=== PATIENT | male | born 1940 | race African-American/Black ===

== ENCOUNTER 2017-10-25 18:33 | Inpatient (IN) | payer OTHER ==
[~2017-10-25] VITALS: Ht 175.3 cm; Wt 80.7 kg
--- NOTE | ~2017-10-25 | EKG ---
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[facility] : 1940 Requested By: Petra Esparza Order Number: [id number] MD: Raul Herrera Measurements Intervals [place] Rate: 126 P: 74 OK: 153 QRS: 16 QRSD: 80 T: 132 QT: 301 QTc: 436 Interpretive Statements Sinus tachycardia Nonspecific ST and T wave abnormality No previous ECG available for comparison Electronically Signed On 10-26-2017 13:45:52 CDT by Raul Herrera [email or web address] <ELECTRONICALLY SIGNED> By: Raul Herrera MD, [facility] 10/26/17 1345 1845 1845 Raul Herrera MD, FACC /EPI
--- NOTE | ~2017-10-25 | HC ---
[facility] [place] [address] CONSULTATION Name: REMIGIO LEWIS Room #: 350-P ADM IN M.R.#: [id number] Admission: 10/25/17 Attend Phys: Sonny Green MD Discharge: Date of : 44 Report #: [id number] THIS REPORT FOR: //name// CC: ESTEFANY POOLE [facility] physician/PCP Sonny June DATE OF SERVICE: 10/25/2017 HISTORY OF PRESENT ILLNESS: This is a 77-year-old male patient who was seen by me because of altered mental status. This patient has baseline dementia. He usually goes to a neurologist at [facility]. He was having urinary frequency for the last 2-3 days. He has to go up to the bathroom multiple times. Today, he had a sudden onset of the flank pain and he had shakiness. Then, he became confused and became unresponsive. Initial workup was done by Dr. Esparza. She ordered a CT scan of the head and CT angio with perfusion. CT of the head report indicates there was diffuse atrophy. CT angiogram and perfusion report is not there, but Dr. Esparza has been called with the results of that and she has been told that it is normal. This patient in the meantime has returned back to his normal self. He usually does not remember months and he does not remember that. He usually remembers the name of his and he can recognize his and he can do that. He can recognize his sister and he can name his sister. This is a pretty significant improvement since he came in. He never had any focal neurological deficit any time. REVIEW OF SYSTEMS: Indicate what appeared to be significant amount of dementia and he is on donepezil for that. He does have a history of hypertension. He takes medication for that. He has no hypertension here. In fact, his blood pressure is 143/80, his pulse rate is 108. His 14-point review of system was carried out and I talked to family multiple times and this was his relevant the best I can do with the time constraint. PAST MEDICAL HISTORY: Positive for what appeared to be significant dementia. FAMILY HISTORY: Negative for early age stroke. SOCIAL HISTORY: He has prior history of smoking. PHYSICAL EXAMINATION: Indicate he is alert. He is responsive. He has a good formed speech. He can recognize his , he can recognize his sister. He knows their name. Whatever I can tell, this is pretty much his baseline. Cranial nerve examination 2-12 was carried out. I do not know how good he does with the visual field. Some time, he does okay, but when I ask him to close one eye, he sometimes does not do okay, but it is not particularly in the right or left visual field. He does not okay on any of them. He does have a history of [facility] [address] [place] [address] CONSULTATION Name: REMIGIO LEWIS Room #: 350-P [facility] IN M.R.#: [id number] Admission: 10/25/17 Attend Phys: Sonny Green MD Discharge: Date of : 44 Report #: [id number] cataract . Last eye examination was about 2 years ago. He has no facial palsy and his strength, sensation, and reflexes are symmetrical the best it could be checked. He has no cerebellar sign. I could not look at the fundus because he could not cooperate. There is no neglect. This examination was carried out multiple times and there is a marked improvement on it. LABORATORY DATA: Came back, his white count is 13.1 and his urinalysis indicate that he has wbc. IMPRESSION: Difficult to form in this patient. He has a urinary tract infection and he presented with the flank pain and it can be encephalopathy. He can have seizures. The point in favor of urinary tract infection is that he has increased wbc in the urine and increased white count at 13.1. Similar finding can occur with seizure if he had one. We initially evaluated for a stroke. We mixed up the TPA and we were going to give him TPA. We have talked to the family and talked to the family multiple times. The situation in this patient is that his symptoms are that he has flank pain followed by what looked like seizure activity and then altered mental status without any focal deficit. Those are atypical features for stroke, but stroke cannot be fully excluded. We have a reason why he can have these symptoms and that is his urinary tract infection complicating dementia and causing encephalopathy and seizure and that will give rise to the blood picture like he has. He has no reactive hypertension. He never had any focal neurological deficit. I frankly talked to the family that we mixed the TPA and we can give the TPA and initially we were going to go ahead and give him TPA, but he has improved pretty significantly. His mentation is back to his baseline. Stroke cannot be fully excluded, but if it is a stroke, it is a small stroke with deficit which has improved pretty significantly. We never used to give TPA to this patient, but these days we do give and we can give if the family wants to proceed with it. After discussing all their options with them, the family decided that they will not like to proceed with TPA. That is reasonable because this patient's symptoms are as described above, we cannot exclude encephalopathy and seizure, by oral report CT angio and perfusion is normal, he has no reactive hypertension and he appears to be his baseline, but I cannot tell about his eye examination. His urinary tract infection should be further worked up and his urinary tract infection should be treated extensively. He should have an MRI and if MRI does show a stroke, then he should be put on secondary stroke prophylaxis. He should have an EEG to make sure he did not have a seizure. There is some question whether he will be staying here or going to [facility] and we will let them decide and do the further management. I did ask them to check for his CT angiogram full report when it comes and call me if there is any difference or problem. Because CT perfusion report is there, but CT angiogram report is not there yet, but Dr. Esparza has been told that it has been normal. [address] [address] CONSULTATION Name: REMIGIO LEWIS Room #: 350[facility] IN .R.#: [id number] Admission: 10/25/17 Attend Phys: Sonny Green MD Discharge: Date of : 44 Report #: [id number] This addendum is being added at the time of signing this note. CT angiogram report is still not there and I called the radiology and they indicated that it is negative and they will put an addendum. Patient decided to stay here. Will check him in AM. Will get EEG and MRI and follow up. More than 50 minutes of time was spent taking care of this patient and majority of that time was spent counseling the family about their options and co ordianting his care <ELECTRONICALLY SIGNED> By: Willis June MD 10/25/17 2325 13 2142 Willis June MD /nt
--- NOTE | ~2017-10-25 | EKG ---
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 : 1940 Requested By: Marguerite Randle Order Number: [id number] MD: Raul Herrera Measurements Intervals [place] Rate: 133 P: 43 OR: 153 QRS: 5 QRSD: 79 T: 152 QT: 256 QTc: 381 Interpretive Statements Sinus tachycardia Nonspecific ST and T wave abnormality Compared to ECG 10/25/2017 18:45:44 No significant change was found Electronically Signed On 10-28-2017 19:23:55 CDT by Raul Herrera [email or web address] <ELECTRONICALLY SIGNED> By: Raul Herrera MD, [facility] 10/28/17 1923 0849 0849 Raul Herrera MD, [facility] /EPI
--- NOTE | ~2017-10-25 | HC ---
[facility] [place] [address] CONSULTATION Name: REMIGIO LEWIS Room #: 362-P [facility] IN M.R.#: [id number] Admission: 10/25/17 Attend Phys: Marguerite Randle Discharge: 10/29/17 Date of : 44 Report #: [id number] THIS REPORT FOR: //name// CC: ESTEFANY POOLE [facility] physician/PCP Marguerite June DATE OF SERVICE: 10/27/2017 HISTORY OF PRESENT ILLNESS: The patient is a 77-year-old -[place] male, who was admitted with an episode of unresponsiveness. He has premorbid dementia, living with his and apparently follows with a neurologist out of [facility]. He was at his baseline when he had the sudden onset of unresponsiveness with aphasia. He was admitted to [facility]. CT of the head was negative. MRI showed some chronic encephalomalacia changes with nothing acute. He was diagnosed with a urinary tract infection. EEG appears to be pending. Working impression of Neurology is that he has an encephalopathy due to the urinary tract infection superimposed on his premorbid dementia. He has had a significant decline from his premorbid function and we are seeing him in rehabilitation medicine consultation. PAST MEDICAL HISTORY: Hyperlipidemia, hypertension, history of premorbid dementia, nevertheless functional in the community with his . Prostate cancer removed in 2006. MEDICATIONS: Please see the full medication listing. ALLERGIES: No known drug allergies. HABITS: No history of alcohol abuse. Former tobacco smoker, quit greater than a year ago. SOCIAL HISTORY: Lives with his in an apartment two flights of steps to get into the apartment. He did not utilize gait aids premorbidly apparently. Her chart notes, he was independent with and household ambulation without a device and walked his 2 dogs multiple times per day. REVIEW OF SYSTEMS: Did not offer any current complaints of chest pain, shortness of breath or abdominal discomfort. No focal extremity pain complaints. PHYSICAL EXAMINATION: GENERAL: A 77-year-old -[place] male in no obvious distress. VITAL SIGNS: Temperature is 99.2, pulse 67, respirations 18, blood pressure is 127/76. [facility] [address] [place] [address] CONSULTATION Name: REMIGIO LEWIS Room #: 362-P [facility] IN [facility].#: [id number] Admission: 10/25/17 Attend Phys: Marguerite Randle Discharge: 10/29/17 Date of : 42 Report #: [id number] NEUROLOGIC: He was unable to tell me which hospital he was in and he could not tell me the year. He can follow basic 1 step commands and was cooperative. EOMs appeared to be full. Facies were symmetric. There is a definite latency to his responses. Functional range of motion of both upper extremities. Strength is grade 4/5. DTRs are trace to 1. Lower extremities, no focal calf swelling, functional range of motion with strength grade 4/5. He is min assist with sit to stand. Gait 250 feet min assist without a device with some balance deficits and unsteadiness and some listing to the right. ASSESSMENT: A 77-year-old -[place] male with the following problem list: 1. Metabolic encephalopathy. 2. Urinary tract infection. 3. Gait and balance issues with decreased functional mobility and ADLs. 4. Initial unresponsiveness episode. 5. Premorbid dementia, nevertheless living in the community with his . PLAN: Therapy evaluations are continuing. He certainly may be a candidate for a short acute in-hospital inpatient rehabilitation stay. We will be glad to follow along with you regarding his rehab therapy needs. ADDENDUM EEG is still pending and OT is evaluating. <ELECTRONICALLY SIGNED> By: Ramon Mcknight MD 11/04/17 1030 1050 1227 Ramon Mcknight MD /[facility]
--- NOTE | ~2017-10-25 | EEG ---
[facility] [place] [address] ELECTROENCEPHALOGRAM Name: REMIGIO LEWIS Room #: 362-P [facility] IN M.R.#: [id number] Admission: 10/25/17 Attend Phys: Marguerite Serrano Discharge: 10/29/17 Date of : 44 Report #: [id number] THIS REPORT FOR: //name// CC: ESTEFANY POOLE [facility] physician/PCP Marguerite June DATE OF SERVICE: 10/26/2017 This patient's EEG is being done for the possibility of seizure. EEG was done by placing the electrodes by standard 10-20 system of electrode placement. Both referential and sequential montages were used for recording. Background activity in this patient's EEG is about 10 Hz and 30 microvolt. The patient goes to sleep, that is associated with bilaterally symmetrical sleep spindle and vertex sharp waves. Throughout the record no active epileptiform activity was noticed. IMPRESSION: This patient's electroencephalogram is intermixed with some theta range slowing on both sides. That is a nonspecific abnormality, which can occur with dementia, encephalopathy, effect of psychotropic medication. No active seizure activity was noticed during this record. Thank you very much for this referral. <ELECTRONICALLY SIGNED> By: Willis June MD 11/06/17 1906 1604 1609 Willis June MD /nt
--- NOTE | ~2017-10-25 | HC ---
[facility] [place] [address] CONSULTATION Name: REMIGIO LEWIS Room #: 362-P ADM IN M.R.#: [id number] Admission: 10/25/17 Attend Phys: Marguerite Randle Discharge: Date of : 44 Report #: [id number] THIS REPORT FOR: //name// CC: ESTEFANY POOLE [facility] physician/PCP Marguerite June REASON FOR CONSULTATION: I was asked to evaluate concerning fever, urinary tract infection and altered mental status. HISTORY OF PRESENT ILLNESS: The patient was a 77-year-old, admitted on 10/25/2017, brought in by EMS when his noticed that he developed acute onset of rigors with complaints of flank pain and was unresponsive to verbal commands. He does have underlying dementia. He has had prostate cancer and previous urinary tract infection. His states nothing like this, however. The patient was unable to give me any details. There was concern about underlying seizure disorder. Neurology has seen him and has done multiple imaging studies including CT and MRI scan, which showed evidence of small vessel disease, nothing acute. He has had low-grade fever since he has been hospitalized. He has been fluctuating in his mental status. His appetite has been reasonable. No witnessed seizure activity identified. He has had a rash that he has been treating with topical steroids for the last several weeks. No headache. Minimal cough. No sputum production. No nausea, vomiting or diarrhea. Currently, no dysuria. Denies any arthritis symptoms. He has had no travel. No reported HIV risk factors. 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 ALLERGIES: None. MEDICATIONS: Prior to his admission included hydrochlorothiazide, Aricept, aspirin, Lipitor, since he has been on ceftriaxone and anti-seizure medications. PAST MEDICAL HISTORY: Hypertension, hyperlipidemia, underlying dementia, prostate cancer in 2007 status post prostatectomy. FAMILY HISTORY: Noncontributory. SOCIAL HISTORY: Past smoker, no significant alcohol intake. Lives with his of 25 years. REVIEW OF SYSTEMS: As noted above with no additions. PHYSICAL EXAMINATION: VITAL SIGNS: Afebrile, hemodynamically stable. GENERAL: He was alert and cooperative. He was slow in his speech. He was hard of hearing. Was disoriented. He did know his name and he was able to recognize his family members. [address] [address] CONSULTATION Name: REMIGIO LEWIS Room #: 362-P [facility] IN M.R.#: [id number] Admission: 10/25/17 Attend Phys: Marguerite Randle Discharge: Date of : 44 Report #: [id number] HEENT: Unremarkable. NECK: Supple. He had dermatitis to his anterior chest and upper back. No adenopathy. LUNGS: Clear. HEART: Regular, without murmur. ABDOMEN: Soft, nontender, no hepatosplenomegaly or mass. GENITOURINARY: External genitalia unremarkable. RECTAL: Not performed. EXTREMITIES: Unremarkable. NEUROLOGIC: Nonfocal. I did watch him walk, he was a bit unsteady, but was able to ambulate without assistance. LABORATORY STUDIES: Sodium 138, potassium 3.4, bicarbonate 26, creatinine 1.2, AST 63, ALT 23, alkaline phosphatase 125, bilirubin 1.1. Hemoglobin 13.2, platelet count 187,000, WBC 10 with 73% segs, 15% lymphs. Sedimentation rate 50. TSH 0.5. MRI scan of the brain showed small vessel ischemic disease. Urinalysis, 6-15 wbc's, 3-10 rbc's, greater than 30 bacteria. Urine culture, E. coli resistant to Unasyn, Bactrim, tetracycline, otherwise susceptible. IMPRESSION: A 77-year-old with change in mental status, complicating underlying dementia. Unclear if he was having rigors at home or actually had a seizure. There is concern by Neurology that he is having subclinical seizure activity at this time. He did have some active urine sediment. However, no definite findings of a pyelonephritis on examination. RECOMMENDATIONS: We will repeat his urinalysis and urine culture. I would like to check his urinary tract imaging studies, also chest x-ray. We will continue ceftriaxone at this time. We will also check immunoglobulins and HIV study. We will see how he does over the next 24 hours. If no improvement in his mental status and he still has low grade fever, then would consider lumbar puncture. <ELECTRONICALLY SIGNED> By: Aditya Marie MD 10/29/17 1704 00 24 Aditya Marie MD /nt
--- NOTE | ~2017-10-25 | EEG ---
[facility] [address] [place] [address] ELECTROENCEPHALOGRAM Name: REMIGIO LEWIS Room #: 362-P [facility] IN M.R.#: [id number] Admission: 10/25/17 Attend Phys: Marguerite Serrano Discharge: 10/29/17 Date of : 42 Report #: [id number] THIS REPORT FOR: //name// CC: ESTEFANY POOLE [facility] physician/PCP Marguerite June DATE OF SERVICE: 10/28/2017 This patient had another episode where he is not that awake as he was before. EEG was done by placing the electrode by standard 10/20 system of electrode placement. EEG was done to see if we can catch any seizure activity in this patient. Background activity in this patient's EEG is about 10 Hz and 40 microvolt. It is a reasonably well formed background activity. It is intermixed with theta range slowing on both sides. The patient appeared to be asleep during part of this EEG and that is associated with bilateral slowing and vertex sharp waves. Photic stimulation is unremarkable. Throughout the record, no active epileptiform activity was noticed. IMPRESSION: In spite of the patient's episode, this patient does not show any active epileptiform activity. Thank you very much for this referral. <ELECTRONICALLY SIGNED> By: Willis June MD 11/06/17 1906 0855 3 MD clive Clay
[2017-10-25 18:52] VITALS: BP 143/80
[2017-10-25 18:59] LABS: ABSOLUTE NEUTROPHILS 11.4 thou/uL (1.4-8.2); BASOPHILS 0.5 % (0.0-2.0); EOSINOPHILS 0.4 % (0.0-3.0); HEMOGLOBIN 14.1 gm/dL (14.0-18.0); LYMPHOCYTES 7.3 % (24.0-44.0); MCH 28.3 pg (26.0-34.0); MCHC 33.4 g/dL (28.0-37.0); MCV 84.8 fL (80.0-100.0); MONOCYTES 4.5 % (1.0-8.0); PLATELET COUNT 197 thou/uL (150-400); POLYS 87.3 % (36.0-66.0); RBC 4.96 mil/uL (4.50-6.00); RDW 15.3 % (10.5-14.5); WBC 13.1 thou/uL (4.0-11.0)
[2017-10-25 19:09] LABS: CALCIUM 9.6 mg/dL (8.5-10.1); CREATININE 1.3 mg/dL (0.7-1.3); POTASSIUM 3.1 mmol/L (3.5-5.1)
[2017-10-25 19:13] LABS: INR 1.1; PROTIME 10.9 Seconds (9.3-11.4)
[2017-10-25 19:14] LABS: APTT 21.7 Seconds (24.5-32.8)
[2017-10-25] MEDS ORDERED: HYDROCHLOROTHIA25 M1 PO (19:28)
[2017-10-25] MEDS ORDERED: ARICEPT 5 MG TAB5 MG PO (19:29)
[2017-10-25] MEDS ORDERED: ATORVASTATIN CA40 MG PO (19:30)
[2017-10-25] MEDS ORDERED: ASPIRIN325 PO (19:30)
[2017-10-25 19:47] LABS: URINE BILIRUBIN NEGATIVE (Negative); URINE BLOOD 1+ (Negative); URINE COLOR YELLOW; URINE GLUCOSE-RANDOM* NEGATIVE (Negative); URINE KETONES NEGATIVE (Negative); URINE LEUKOCYTES-REFLEX NEGATIVE (Negative); URINE NITRITE-REFLEX POSITIVE (Negative); URINE PROTEIN (DIPSTICK) TRACE (Negative); URINE SPECIFIC GRAVITY <= 1.005 (1.005-1.035)
[2017-10-25 19:48] LABS: URINE CLARITY SL HAZY
[2017-10-25 19:52] LABS: BACTERIA-REFLEX >30 Many /HPF (None Seen); CASTS None Seen /LPF (None Seen); CRYSTALS None Seen /LPF (None Seen); SQUAMOUS None Seen /LPF (0-3); URINE RBC 3-10 Few /HPF (0-2); URINE WBC-REFLEX 6-15 Few /HPF (0-5)
[2017-10-25 21:25] VITALS: BP 133/78
[2017-10-25 21:44] VITALS: BP 123/68
[2017-10-25 22:00] VITALS: BP 150/71
[2017-10-25 22:17] LABS: POC CA IONIZED 4.7 mg/dL (4.5-5.3); POC CREATININE 1.1 mg/dL (0.6-1.3); POC HEMOGLOBIN 13.6 g/dL (14.0-18.0)
[2017-10-26 00:13] VITALS: BP 111/57
[2017-10-26 03:26] VITALS: BP 113/63
[2017-10-26 07:02] LABS: HEMATOCRIT 37.8 % (42.0-52.0); HEMOGLOBIN 12.5 gm/dL (14.0-18.0); MCH 28.2 pg (26.0-34.0); MCV 85.4 fL (80.0-100.0); RBC 4.43 mil/uL (4.50-6.00); WBC 15.3 thou/uL (4.0-11.0)
[2017-10-26 07:10] LABS: CALCIUM 8.9 mg/dL (8.5-10.1); CREATININE 1.2 mg/dL (0.7-1.3); POTASSIUM 3.5 mmol/L (3.5-5.1)
[2017-10-26 07:47] LABS: TSH 0.562 uIU/mL (0.358-3.740)
[2017-10-26 10:12] VITALS: BP 116/67
[2017-10-26 12:20] VITALS: BP 114/63
[2017-10-26] MEDS ORDERED: AMLODIPINE BESY10 MG PO (13:26)
[2017-10-26] MEDS ORDERED: HYDROCHLOROTHIA25 M2 PO (13:27)
[2017-10-26] MEDS ORDERED: ARICEPT 5 MG TAB5 MG PO (13:27)
[2017-10-26] MEDS ORDERED: LIPITOR10 MG PO (13:27)
[2017-10-26] MEDS ORDERED: NAMENDA 10 MG T10 MG PO (13:28)
[2017-10-26 15:11] VITALS: BP 133/66
[2017-10-26 19:30] VITALS: BP 138/63
[2017-10-27 03:15] VITALS: BP 125/63
[2017-10-27 08:00] VITALS: BP 127/76
[2017-10-27 12:10] VITALS: BP 114/70
[2017-10-27 16:08] VITALS: BP 131/75
[2017-10-27 20:30] VITALS: BP 126/72
[2017-10-28 05:00] VITALS: BP 134/71
[2017-10-28 06:44] LABS: ABSOLUTE NEUTROPHILS 7.3 thou/uL (1.4-8.2); EOSINOPHILS 1.2 % (0.0-3.0); HEMOGLOBIN 13.2 gm/dL (14.0-18.0); LYMPHOCYTES 15.6 % (24.0-44.0); MCH 28.2 pg (26.0-34.0); MCHC 33.1 g/dL (28.0-37.0); MONOCYTES 8.8 % (1.0-8.0); PLATELET COUNT 187 thou/uL (150-400); POLYS 73.4 % (36.0-66.0); RDW 15.8 % (10.5-14.5)
[2017-10-28 06:59] LABS: ALBUMIN 2.8 g/dL (3.4-5.0); ANION GAP 8 mmol/L (7-16); BUN 16 mg/dL (7-18); CALCIUM 9.6 mg/dL (8.5-10.1); CHLORIDE 104 mmol/L (98-107); CO2 26 mmol/L (21-32); CREATININE 1.2 mg/dL (0.7-1.3); GLUCOSE 92 mg/dL (74-106); MAGNESIUM 2.1 mg/dL (1.8-2.4); POTASSIUM 3.4 mmol/L (3.5-5.1); SGOT 63 U/L (15-37); SGPT 23 U/L (30-65); SODIUM 138 mmol/L (136-145); TOTAL BILIRUBIN 1.1 mg/dL (<0.1-1.0); TOTAL PROTEIN 7.3 g/dL (6.4-8.2)
[2017-10-28 07:11] LABS: CHOLESTEROL 113 mg/dL (<200); HDL CHOLESTEROL 33 mg/dL (>40); LDL CHOLESTEROL 66 mg/dL (<100); TC:HDL 3.4 Ratio (Not establshd); TRIGLYCERIDE 74 mg/dL (<150); VLDL 15 mg/dL (<40)
[2017-10-28 08:02] LABS: APTT 28.2 Seconds (24.5-32.8); INR 1.1
[2017-10-28 18:39] VITALS: BP 105/68
[2017-10-28 19:40] VITALS: BP 111/65
[2017-10-29 02:19] LABS: URINE BLOOD TRACE (Negative); URINE CLARITY CLEAR; URINE COLOR YELLOW; URINE GLUCOSE-RANDOM* NEGATIVE (Negative); URINE KETONES TRACE (Negative); URINE LEUKOCYTES-REFLEX NEGATIVE (Negative); URINE NITRITE-REFLEX NEGATIVE (Negative); URINE PROTEIN (DIPSTICK) 1+ (Negative); URINE SPECIFIC GRAVITY 1.015 (1.005-1.035)
[2017-10-29 02:22] LABS: ICTOTEST (BILI CONFIRMATORY) Negative (Negative); URINE BILIRUBIN NEGATIVE (Negative)
[2017-10-29 02:25] LABS: MUCUS 0-3 Light strn/LPF (None Seen); SQUAMOUS 0-3 Few /LPF (0-3)
[2017-10-29 02:26] LABS: BACTERIA-REFLEX 1-9 Few /HPF (None Seen); CASTS None Seen /LPF (None Seen); CRYSTALS None Seen /LPF (None Seen); URINE RBC 0-2 Rare /HPF (0-2); URINE WBC-REFLEX None Seen /HPF (0-5)
[2017-10-29 03:10] LABS: GLYCOHEMOGLOBIN (HGB A1C) 5.8 % (4.8-5.6)
[2017-10-29 03:10] LABS: IgA 306 mg/dL (61-437); IgG 1211 mg/dL (700-1600); IgM 97 mg/dL (15-143)
[2017-10-29 04:30] VITALS: BP 120/65
[2017-10-29 05:41] LABS: ABSOLUTE NEUTROPHILS 12.4 thou/uL (1.4-8.2); BASOPHILS 0.7 % (0.0-2.0); EOSINOPHILS 0.9 % (0.0-3.0); HEMOGLOBIN 11.9 gm/dL (14.0-18.0); LYMPHOCYTES 10.1 % (24.0-44.0); MCH 28.2 pg (26.0-34.0); MCV 85.4 fL (80.0-100.0); MONOCYTES 9.2 % (1.0-8.0); PLATELET COUNT 209 thou/uL (150-400); POLYS 79.1 % (36.0-66.0); RBC 4.22 mil/uL (4.50-6.00); RDW 15.8 % (10.5-14.5); WBC 15.7 thou/uL (4.0-11.0)
[2017-10-29 06:04] LABS: ALBUMIN 2.4 g/dL (3.4-5.0); CALCIUM 9.4 mg/dL (8.5-10.1); CREATININE 1.1 mg/dL (0.7-1.3); POTASSIUM 3.4 mmol/L (3.5-5.1); TOTAL BILIRUBIN 0.6 mg/dL (<0.1-1.0); TOTAL PROTEIN 6.7 g/dL (6.4-8.2)
[2017-10-29 07:14] LABS: HIV ANTIBODY Non Reactive (Non Reactive)
[2017-10-29 08:10] VITALS: BP 120/76
[2017-10-29] MEDS ORDERED: CEFUROXIME500 MG PO (09:32)
[2017-10-29] MEDS ORDERED: KEPPRA 500 MG500 M1 PO (09:33)
[2017-10-29 10:14] VITALS: BP 120/76
[2017-10-29 11:46] VITALS: BP 119/73
[2017-10-29 15:22] VITALS: BP 127/75
== END 2017-10-29 19:08 | disposition home health service (06) | DRG 871 ==
LOC: ER 18:33 → EROBS 21:01 → 3W 21:01
PROVIDERS: Emergency Medicine; Hospitalist; Nurse Practitioner Family; Psychiatry & Neurology Neuromuscular Medicine; Registered Nurse; Specialist
DX: A41.9 Sepsis, unspecified organism (principal); G93.41 Metabolic encephalopathy; N39.0 Urinary tract infection, site not specified; G45.9 Transient cerebral ischemic attack, unspecified; F03.90 Unspecified dementia, unspecified severity, without behavioral disturbance, psychotic disturbance, mood disturbance, and anxiety; E78.5 Hyperlipidemia, unspecified; Z85.46 Personal history of malignant neoplasm of prostate; Z87.891 Personal history of nicotine dependence; Z79.82 Long term (current) use of aspirin; Z79.899 Other long term (current) drug therapy
CPT/HCPCS: 10779; 10879